=== PATIENT | male | born 1965 | race American Indian/Alaskan Native ===

== ENCOUNTER 2019-03-02 05:55 | Day surgery (SDC) | payer OTHER ==
[2019-03-02] MEDS ORDERED: TYLENOL PO ONE (06:00)
[2019-03-02] MEDS ORDERED: LACTATED RINGERS 1,000 ML IV SCH (06:00)
[2019-03-02] MEDS ORDERED: ANCEF/STERILE WATER 2 GM/20 ML 2 GM/20 ML SYRINGE IV NR (06:00)
[2019-03-02] MEDS ORDERED: NEURONTIN PO SCH (06:00)
[2019-03-02] MEDS ORDERED: ZEMURON IV ONE ×2 (07:13→09:09)
[2019-03-02] MEDS ORDERED: DIPRIVAN 10 MG/ML IV ONE (07:13)
[2019-03-02] MEDS ORDERED: SUBLIMAZE ONE (07:13)
--- NOTE | 2019-03-02 07:35 | Anesthesia Consultation ---
Anesthesia Consult and Med Hx Date of service: 03/02/19 - Airway Anesthetic Teeth Evaluation: Poor ROM Head & Neck: Adequate Mental/Hyoid Distance: Adequate Mallampati Class: Class III Intubation Access Assessment: Probably Good - Pulmonary Exam CTA: Yes - Cardiac Exam Cardiac Exam: RRR - Pre-Operative Health Status ASA Pre-Surgery Classification: ASA3 Proposed Anesthetic Plan: General - Pulmonary Hx Smoking: Yes (FORMER 1998) Hx Asthma: No Hx Respiratory Symptoms: No Hx Sleep Apnea: No - Cardiovascular System Hx Hypertension: Yes (OCT 2018 (DIET CONTROL)) Hx Coronary Artery Disease: No Hx Cardia Arrhythmia: No Hx Pacemaker: No - Central Nervous System Hx Neuromuscular Disorder: No Hx Psychiatric Problems: No - Gastrointestinal Hx Gastroesophageal Reflux Disease: No - Endocrine Hx Renal Disease: No Hx Liver Disease: No Hx Insulin Dependent Diabetes: No ("prediabetic") Hx Non-Insulin Dependent Diabetes: No Hx Thyroid Disease: No - Hematic Hx Sickle Cell Disease: (TRAIT) - Other Systems Hx Alcohol Use: No Hx Substance Use: Yes (PRIOR ABUSER) Hx Cancer: Yes (prostate) - Additional Comments Anesthesia Medical History Comments: No GAC, No FHAC
--- NOTE | 2019-03-02 07:36 | Anesthesia Day of Surgery ---
Anesthesia Day of Surgery - Day of Surgery Patient Examined: Yes Patient H&P Reviewed: Yes Patient is NPO: Yes (2099) Beta Blockers: No Cardiac Clearance: No Pulmonary Clearance: No
--- NOTE | 2019-03-02 07:36 | Short Stay Summary ---
Short Stay Documentation Date of service: 03/02/19 - History H&P: obtained from office - Allergies and Medications Current Medications: Allergies chocolate flavor Allergy (Verified 02/26/19 14:36) Anaphylaxis shellfish derived Allergy (Verified 02/26/19 14:36) Anaphylaxis Home Medications Medication Instructions Recorded Confirmed Last Taken Type No Known Home Medications [No 02/26/19 02/26/19 Unknown History Reported Home Medications] Active Medications Gabapentin (Neurontin) 900 mg PO PREOP MAYE Lactated Ringer's (Lactated Ringers) 1,000 mls @ 42 mls/hr IV DIRECT MAYE - Physical exam General appearance: no acute distress Lungs: Normal air movement Male Genitourinary: right inguinal hernia Neurological: Normal speech - Brief post op/procedure progress note Date of procedure: 03/02/19 (dictation: [id number]) Pre-op diagnosis: Incarcerated RIH Post-op diagnosis: same Procedure: Robotic assisted RIH repair Anesthesia: GETA Findings: very large, incarcerated inguinal-scrotal RIH IVF-900cc EBL min Surgeon: URIAH FITCH Estimated blood loss: minimal Pathology: none Condition: stable - Hospital course Hospital course: uneventful - Disposition Condition at discharge: Stable Disposition: DC-01 TO HOME OR SELFCARE Short Stay Discharge Plan Activity: other Diet: regular Wound: open to air, keep clean and dry Special Instructions: no heavy lifting Additional Instructions: Post Operative Instructions No driving until cleared by surgeon. May shower tomorrow. Pat dry the wound or wounds. After surgery, start with a light diet. Consider having a liquid diet first. If you do well, you can advance to a regular diet as you feel comfortable. Apply an ice pack to the wound or wounds for 10-20 minutes at a time. Do this at least 4-5 times a day. You can do it more if he would like. Alternate the use of ibuprofen and Tylenol for the first 2 days. I want you to take these on a scheduled basis. Take 600 mg of ibuprofen every 6 hours. Take 500 mg of Tylenol every 6 hours. You should alternate these 2 medicines. In other words, beginning with the ibuprofen. After 3 hours, take the Tylenol. Keep alternating the 2 drugs every 3 hours. Do this on a scheduled basis for the first 2 days. After that, you can take them as needed. It is very important that you use the prescription pain medicine only for very severe pain. Do not take the prescription medicine before you try using the ibuprofen and Tylenol. We will call you in a couple of days to see how youre doing. If you have any questions or concerns, always feel free to call the clinic at any time. Follow up with: TERE MORALES NP [Primary Care Provider] - 7 Days URIAH FITCH MD [Staff Physician] - 7 Days Forms: Outpatient Surgery DC Inst. Prescriptions: HYDROcodone/APAP 5-325 [[place] 5/325] 2 each PO Q6HR PRN #30 tablet PRN Reason: Pain , Severe (7-10)
[2019-03-02] MEDS ORDERED: MARCAINE 0.5% INFILTRATI ONE ×2 (07:53→09:25)
[2019-03-02] MEDS ORDERED: XYLOCAINE 2% INFILTRATI ONE ×2 (07:54→09:25)
[2019-03-02] MEDS ORDERED: DILAUDID IV PRN (08:07)
[2019-03-02] MEDS ORDERED: VERSED IV NR (09:00)
[2019-03-02] MEDS ORDERED: DILAUDID ONE (09:09)
[2019-03-02] MEDS ORDERED: NACL 0.9% IR ONE (09:27)
[2019-03-02] MEDS ORDERED: TORADOL ONE (11:38)
[2019-03-02] MEDS ORDERED: ROBINUL ONE (11:52)
[2019-03-02] MEDS ORDERED: BLOXIVERZ ONE (11:52)
[2019-03-02] MEDS ORDERED: NORCO 5/325 PO PRN (12:33)
--- NOTE | 2019-03-02 13:32 | Post Anesthesia Evaluation ---
- Post Anesthesia Evaluation Patient Participated: Yes Airway Patent: Yes Stable Respiratory Function: Yes Nausea/Vomiting: No Temp > 96.8F: Yes Pain Manageable: Yes Adequeate Hydration: Yes Anesthesia Complications: No
[2019-03-02 15:54] VITALS: BP 141/86
--- NOTE | 2019-03-03 16:54 | Operative Report ---
PREOPERATIVE DIAGNOSIS: Incarcerated right inguinal hernia. POSTOPERATIVE DIAGNOSIS: Incarcerated right inguinal hernia. PROCEDURE: Robotic right inguinal hernia repair with mesh. ATTENDING PHYSICIAN: MaryE llen Cain MD ANESTHESIA: General. ESTIMATED BLOOD LOSS: Minimal. FLUIDS: 900 mL. FINDINGS: Large amount of omentum and small bowel were incarcerated in a very large indirect inguinal scrotal hernia. All the contents were viable. SPECIMENS: None. IMPLANTS: Bard 3DMax medium mesh, right. DRAINS: None. COMPLICATIONS: None. DISPOSITION: Stable, transferred to Recovery Room. INDICATIONS: This is a 53-year-old male who has had a very large and enlarging right inguinal hernia for many years. He has had a prior robotic prostatectomy. Denies any discomfort, but he is concerned that the hernia is getting larger. The patient was assessed to be in need for repair. Procedure, risks, and benefits were explained to the patient. Risks included but were not limited to infection, bleeding, pain, injury to surrounding structures, possible need for further procedures in the future. The patient understood and consented. OPERATIVE NOTE: The patient was brought to the operating room and placed on the table in supine position. After adequate general anesthesia was established, the patient was prepped and draped in the usual sterile fashion. We prepped the scrotum into the field as well so that we could manipulate it if need be. SCDs were placed. Antibiotics had been given. Time-out was called. We began by placing a Veress needle in the left upper quadrant. I was able to insufflate in the first attempt. We then replaced this with a 5 mm port using an Optiview technique, I entered the peritoneal cavity safely. There was no injury to the underlying structures. Because the hernia had been incarcerated, I tried to reduce it after he was asleep, we still were unable to reduce it. Therefore, I felt that the addition of a third robotic arm would be very useful for retraction purposes. A 12 mm port was placed in the upper midline. Two 8 mm ports were placed on the right side of the abdomen and then under direct vision, the 5 mm port was replaced with an 8 mm port. The patient was placed in Trendelenburg position. Based on the size of the hernia and what I believe to be the space that I could dissect, I was a bit limited as the patient already had a robotic prostatectomy, so the midline was scarred down. I took down some adhesions of the omentum to the anterior abdominal wall. I then inserted 3DMax right-sided medium mesh along with a 2-0 Vicryl suture, 3-0 V-Loc suture and a Ray-Jojo. We then docked the robot. As mentioned, I took down the adhesions in the midline first. I then created my peritoneal flap coming at least 5 cm superior to the top of the internal ring. I was able to gently reduce holding the contents without any injury to the omentum or the bowel. I applied gentle tension at various locations around the entire structure in order to get a little bit out at that time, which then ultimately released the constriction and allowed the entire contents to reduce completely. We then created the preperitoneal flap. The flap was densely adhered to the surrounding structures as well as along the midline from his previous surgery. Extra time was required for this dissection. It was incredibly large sac that we had to dissect out, so that took extra time as well. We were able to dissect out the sac in its entirety without any disruption of the sac. I was able to separate from the cord structures. Once this was done and we felt we had dissected far enough back, I then laid the mesh in place and secured it at 2 points on the anterior abdominal wall taking care to avoid the epigastric vessels as well as not coming below the inguinal ligament. I did not dissect out the pubic tubercle as this area was completely scarred in from his prior surgery. The mesh appeared to lay very nicely. We then closed the flap with a 3-0 V-Loc suture. We had placed an Angiocath under direct vision on the lateral aspect of the space that was created in order to reabsorb some of the air. Once we had completely closed the peritoneum, we then converted back to a laparoscopic case. The robot was undocked. We removed the 2 sutures as well as the gauze. We desufflated the abdomen and tried to remove as much air as possible from the dissected area and then removed the Angiocath catheter. All the ports were removed. I closed the anterior rectus sheath with [id number] 0 Vicryl stitch. Additional local was injected. The skin sites were closed with 4-0 Monocryl subcuticular stitches. Skin was cleaned and dried. Dermabond was placed. The patient tolerated the procedure well. There were no complications. All counts were correct at the end of the case. Please note that there was still some air in the scrotum at the end of the case. JOB# [id number] LISSETH/EMELI
== END 2019-03-02 15:00 | disposition home or self-care (01) ==
LOC: OR 05:55
PROVIDERS: ATTEND Surgery
DX: K40.30 Unilateral inguinal hernia, with obstruction, without gangrene, not specified as recurrent (principal); I10 Essential (primary) hypertension; M19.90 Unspecified osteoarthritis, unspecified site; E11.9 Type 2 diabetes mellitus without complications; Z98.890 Other specified postprocedural states; Z80.41 Family history of malignant neoplasm of ovary; Z79.899 Other long term (current) drug therapy; Z91.013 Allergy to seafood; Z85.46 Personal history of malignant neoplasm of prostate; Z87.891 Personal history of nicotine dependence; Z88.8 Allergy status to other drugs, medicaments and biological substances
CPT/HCPCS: 49650; C1781; J0690; J1170; J1885; J2250; J2704; J2710; J3010; J7120; S2900